=== PATIENT | female | born 1965 | race African-American/Black ===

== ENCOUNTER 2020-11-07 15:15 | Emergency (ER) | payer OTHER ==
[~2020-11-07] VITALS: Ht 129.5 cm; Wt 63.0 kg
[2020-11-07 15:22] VITALS: BP 137/74
[2020-11-07 16:14] LABS: BASOPHILS % 0.2 % (0.0-2.0); HEMATOCRIT. 37.1 % (36.0-48.0); HEMOGLOBIN. 12.3 g/dL (12.0-16.0); LYMPHOCYTES % 37.9 % (20.0-50.0); MEAN CORPUSCULAR HEMOGLOBIN 27.6 pg (28.0-32.0); MEAN CORPUSCULAR VOLUME 82.9 fL (81.0-99.0); MEAN PLATELET VOLUME 8.5 fl (7.4-10.4); NEUTROPHILS % 52.9 % (40.0-76.0); PLATELET 231 x1000/uL (130-400); RED BLOOD CELL COUNT 4.47 mill/uL (4.2-5.4); RED CELL DISTRIBUTION WIDTH 13.8 % (11.6-14.6)
[2020-11-07 16:23] LABS: CHLORIDE 108 mEq/L (98-107)
[2020-11-07] MEDS ORDERED: IOHEXOL-350 100 ML BOTTLE ONE (18:53)
== END 2020-11-07 18:38 | disposition home or self-care (01) ==
LOC: ER 15:15
DX: G62.9 Polyneuropathy, unspecified (principal); R26.2 Difficulty in walking, not elsewhere classified
CPT/HCPCS: 36415; 73590; 73706; 80053; 85025; 99285; Q9967